=== PATIENT | male | born 1960 | race Caucasian/White ===

== ENCOUNTER 2018-07-23 09:19 | Outpatient (CLI) | END 2018-07-23 09:20 | disposition home or self-care (01) | LOC: FCC-LAB 09:19 | PROVIDERS: ATTEND Family Medicine | DX: Z51.81 Encounter for therapeutic drug level monitoring (principal); R89.2 Abnormal level of other drugs, medicaments and biological substances in specimens from other organs, systems and tissues | CPT/HCPCS: 36415; 80306 ==

== ENCOUNTER 2018-12-26 12:05 | Outpatient (CLI) | END 2018-12-26 12:06 | disposition home or self-care (01) | LOC: RHC-LAB 12:05 → FCC-LAB 12:06 | PROVIDERS: ATTEND Family Medicine | DX: R89.2 Abnormal level of other drugs, medicaments and biological substances in specimens from other organs, systems and tissues (principal); Z51.81 Encounter for therapeutic drug level monitoring; Z79.899 Other long term (current) drug therapy | CPT/HCPCS: 80306 ==

== ENCOUNTER 2019-01-20 15:50 | Outpatient (CLI) | END 2019-01-20 15:51 | disposition home or self-care (01) | LOC: RHC-LAB 15:50 → FCC-LAB 15:51 | PROVIDERS: ATTEND Family Medicine | DX: Z51.81 Encounter for therapeutic drug level monitoring (principal); E34.9 Endocrine disorder, unspecified; Z79.899 Other long term (current) drug therapy | CPT/HCPCS: 36415; 80306 ==

== ENCOUNTER 2019-01-22 13:21 | Outpatient (CLI) | END 2019-01-22 13:22 | disposition home or self-care (01) | LOC: RHC-LAB 13:21 → FCC-LAB 13:22 | PROVIDERS: ATTEND Family Medicine | DX: E34.9 Endocrine disorder, unspecified (principal) | CPT/HCPCS: 81050; 82340 ==

== ENCOUNTER 2019-05-27 10:51 | Outpatient (CLI) | END 2019-05-27 10:52 | disposition home or self-care (01) | LOC: RHC-LAB 10:51 | PROVIDERS: ATTEND Family Medicine | DX: Z51.81 Encounter for therapeutic drug level monitoring (principal) | CPT/HCPCS: 80306 ==